=== PATIENT | male | born 1990 | race Hispanic/Latino ===

== ENCOUNTER 2018-12-06 02:07 | Outpatient (CLI) | payer OTHER ==
[2018-12-06 10:19] LABS: #Basophils 0.1 thou/uL (0.0-0.2); #Eosinphils 0.4 thou/uL (0.0-0.7); #Lymphocytes 3.5 thou/uL (1.20-3.40); #Monocytes 0.8 thou/uL (0.11-0.59); #Neutrophils 6.5 thou/uL (1.40-6.50); %Basophils 0.9 % (0.0-1.0); %Eosinophils 3.3 % (0.0-10.0); %Lymphocytes 31.1 % (21.0-51.0); %Monocytes 7.1 % (0.0-10.0); %Neutrophils 57.7 % (42.0-75.0); Hemoglobin 16.9 g/dL (14.0-18.0); Mean Corpuscular HGB CONC 34.2 g/dL (32.0-36.0); Mean Corpuscular Hemoglobin 31.1 pg (27.0-31.0); Mean Platelet Volume 7.7 fL (7.4-10.4); Platelet Count 256 thou/uL (130-400); RBC Distribution Width 11.3 % (11.5-14.5); Red Blood Cell (RBC) Count 5.44 mill/uL (4.70-6.10); White Blood Cell (WBC) Count 11.3 thou/uL (4.8-10.8)
== END 2018-12-06 02:08 | disposition home or self-care (01) ==
LOC: LABBT 02:07
PROVIDERS: ATTEND Surgery
DX: Z01.812 Encounter for preprocedural laboratory examination (principal); K42.9 Umbilical hernia without obstruction or gangrene
CPT/HCPCS: 85025

== ENCOUNTER 2018-12-08 05:51 | Day surgery (SDC) | payer OTHER ==
[2018-12-06 09:28] VITALS: BMI 40.3
[2018-12-08] MEDS ORDERED: Bupivacaine/Epinephrine 0.25% 30 ML VIAL ONE (06:35)
[2018-12-08] MEDS ORDERED: Fentanyl 100 MCG/2 ML VIAL ONE (06:53)
[2018-12-08] MEDS ORDERED: Midazolam HCl 2 mg/2 ml Vial ONE (07:08)
[2018-12-08] MEDS ORDERED: HYDROcodone/Acetaminophen 5/325 mg Tablet ONE (09:37)
--- NOTE | 2018-12-08 12:21 | OP ---
DATE OF PROCEDURE: 12/08/2018 PREOPERATIVE DIAGNOSIS: Umbilical hernia. PROCEDURE PERFORMED: Umbilical hernia repair. INDICATIONS: A 28-year-old male with a painful umbilicus, found to have a small umbilical hernia. FINDINGS: A very small 4-mm umbilical hernia containing preperitoneal fat. No mesh was used. DESCRIPTION OF PROCEDURE: After informed consent was obtained, the patient was taken to the operating room and given general mask anesthesia, placed in the supine position. Abdomen was prepped and draped in usual fashion. Local anesthesia was infiltrated subcutaneously and deep, a subumbilical incision was performed. Subcu divided sharply. The umbilical skin was dissected down to the fascia. The small hernia was found. The sac was removed and the small 4 mm defect closed with a [id number] of 0 Ethibond. Umbilical skin then sutured to the fascia with interrupted 3-0 Vicryl. Subcu reapproximated with interrupted 3-0 Vicryl and skin closed with interrupted 4-0 Rapide. Steri-Strips applied. Sterile bandage applied. The patient tolerated the procedure well, transferred to Recovery in good condition. Sponge and needle count verified correct x2. Job ID: [id number]
[2018-12-08] MEDS ORDERED: PROPOFOL 200 MG/20 ML VIAL ONE (13:00)
[2018-12-08] MEDS ORDERED: Ondansetron PF 4 MG/2 ML Vial ONE (13:00)
[2018-12-08] MEDS ORDERED: Dexamethasone 20 MG/5 ML VIAL ONE (13:00)
[2018-12-08] MEDS ORDERED: Lidocaine 2% PF 5 ML VIAL ONE (13:00)
== END 2018-12-08 10:17 | disposition home or self-care (01) ==
LOC: SDC 05:51
PROVIDERS: ATTEND Surgery
PROC: 0WQF0ZZ Repair Abdominal Wall, Open Approach (ICD-10-PCS; principal; 2018-12-08)
DX: K42.9 Umbilical hernia without obstruction or gangrene (principal)
CPT/HCPCS: J0690; J2250; J3010

== ENCOUNTER 2019-10-26 06:41 | Emergency (ER) | payer OTHER ==
[2019-10-26] MEDS ORDERED: Ibuprofen 800 MG TAB ONE (07:14)
--- NOTE | 2019-10-26 07:27 | RAD ---
Exam: Chest one view HISTORY:Cough. Comparison: None. FINDINGS: Cardiac silhouette: Normal Aorta: Unremarkable Pulmonary vessels: Normal Costophrenic angles: Clear LUNGS: No masses or consolidation. Pneumothorax: None Osseous abnormalities: None IMPRESSION: No acute cardiopulmonary process.
== END 2019-10-26 09:00 | disposition home or self-care (01) ==
LOC: ERS 06:41
DX: J10.1 Influenza due to other identified influenza virus with other respiratory manifestations (principal)
CPT/HCPCS: 71045; 87804

== ENCOUNTER 2025-05-29 13:17 | Emergency (ER) | payer OTHER, SELFPAY | END 2025-05-29 14:56 | disposition home or self-care (01) | LOC: ERS 13:17 | DX: M19.031 Primary osteoarthritis, right wrist (principal) | CPT/HCPCS: 99283 ==